=== PATIENT | male | born 1985 | race Caucasian/White ===

== ENCOUNTER 2023-05-29 10:12 | Emergency (ER) | payer SELFPAY ==
[2023-05-29] MEDS ORDERED: Sodium Chloride 0.9% 10 ML Syringe FLUSH PRN (10:15)
[2023-05-29 10:34] LABS: BASOPHILS ABSOLUTE AUTO 0.03 K/uL (0.00-0.20); BASOPHILS PERCENT AUTO 0.7 % (0.0-2.0); EOSINOPHILS ABSOLUTE AUTO 0.04 K/uL (0.00-0.50); EOSINOPHILS PERCENT AUTO 0.9 % (0.0-5.0); HEMATOCRIT 40.2 % (39.0-49.0); HEMOGLOBIN 14.3 g/dL (13.1-16.8); LYMPHOCYTES ABSOLUTE AUTO 0.45 K/uL (0.50-3.50); LYMPHOCYTES PERCENT AUTO 10.2 % (10.0-50.0); MEAN CORPUSCULAR HEMOGLOBIN 32.8 pg (28.2-33.3); MEAN CORPUSCULAR HGB CONC 35.6 g/dL (31.7-36.0); MEAN CORPUSCULAR VOLUME 92.2 fL (84.0-98.0); MONOCYTES ABSOLUTE AUTO 0.43 K/uL (0.00-1.00); MONOCYTES PERCENT AUTO 9.8 % (2.0-14.0); NEUTROPHILS ABSOLUTE AUTO 3.45 K/uL (1.40-7.00); NEUTROPHILS PERCENT AUTO 78.4 % (45.0-80.0); PLATELET COUNT,PLT 82 K/uL (150-350); RED BLOOD CELL COUNT 4.36 M/uL (4.33-5.41); RED CELL DISTRIBUTION WIDTH 14.1 % (11.2-14.1); WHITE BLOOD CELL COUNT,WBC 4.4 K/uL (4.0-10.2)
[2023-05-29] MEDS: Sodium Chloride 0.9% 1,000 ML IV ONE ×2 (10:45→11:44)
[2023-05-29] MEDS: Thiamine 200 MG/2 ML MDV IVPUSH ONE (10:48)
[2023-05-29 11:08] LABS: ALANINE AMINOTRANSFERASE,ALT 213 U/L (12-78); ALBUMIN 4.3 g/dL (3.4-5.0); ALKALINE PHOSPHATASE 84 IU/L (46-116); ASPARTATE AMNIOTRANSFERASE,AST 526 U/L (15-37); BILIRUBIN TOTAL 2.5 mg/dL (0.2-1.0); BLOOD UREA NITROGEN,BUN 3 mg/dL (7-18); CALCIUM 9.2 mg/dL (8.5-10.1); CARBON DIOXIDE,CO2 24.6 mmol/L (21.0-32.0); CHLORIDE,CL 96 mmol/L (98-107); CREATININE 1.05 mg/dL (0.51-1.17); ETHANOL BLOOD MEDICAL 0.002 g/dL (0.000-0.080); GLUCOSE RANDOM 165 mg/dL (70-99); MAGNESIUM 0.9 mg/dL (1.8-2.4); PROTEIN TOTAL,TP 7.8 g/dL (6.4-8.2); SODIUM,NA 137 mmol/L (136-145)
[2023-05-29 11:10] LABS: ANION GAP 19.4 meq/L (7-15); ESTIMATED GFR 93 mL/min (>=60)
[2023-05-29 11:28] LABS: APPEARANCE,URINE CLEAR; BILIRUBIN,URINE SMALL (NEGATIVE); COLOR,URINE YELLOW; GLUCOSE,URINE NEGATIVE (NEGATIVE); KETONES,URINE 15 mg/dL (NEGATIVE); LEUKOCYTE ESTERASE,URINE NEGATIVE (NEGATIVE); NITRITE,URINE NEGATIVE (NEGATIVE); OCCULT BLOOD,URINE MODERATE (NEGATIVE); PROTEIN,URINE >=300 mg/dL (NEGATIVE)
[2023-05-29 11:31] LABS: AMPHETAMINES SCREEN, URINE NEGATIVE (NEGATIVE); BARBITURATE SCREEN,URINE NEGATIVE (NEGATIVE); BENZODIAZEPINES SCREEN,URINE NEGATIVE (NEGATIVE); COCAINE METABOLITES,URINE NEGATIVE (NEGATIVE); EDDP,URINE SCREEN NEGATIVE (NEGATIVE); METHAMPHETAMINES SCREEN, URINE NEGATIVE (NEGATIVE); TCA SCREEN,URINE NEGATIVE (NEGATIVE); THC SCREEN,URINE 50 NG/ML NEGATIVE (NEGATIVE)
[2023-05-29 11:32] LABS: BUPRENORPHINE SCREEN,URINE NEGATIVE (NEGATIVE); OXYCODONE SCREEN,URINE NEGATIVE (NEGATIVE)
[2023-05-29] MEDS: Potassium Bicarbonate/Cit Ac 20 MEQ Effervescent Tab PO ONE ×3 (11:35→13:40)
[2023-05-29] MEDS: Ondansetron 4 MG/2 ML SDV IVPUSH ONE (11:36)
[2023-05-29 11:38] LABS: RBC,URINE 0-5 /HPF; WBC,URINE 0-5 /HPF
[2023-05-29 11:39] LABS: AMORPHOUS SEDIMENT,URINE FEW /HPF (0/HPF); BACTERIA,URINE NOT SEEN /HPF (NONE TO FEW); EPITHELIAL CELLS,URINE FEW /LPF; HYALINE CASTS,URINE FEW; MUCUS,URINE MODERATE /LPF (NEGATIVE)
[2023-05-29] MEDS: Diazepam 5 MG Tab PO ONE (11:51)
[2023-05-29] MEDS: Diphtheria,Pertussis(Acell),Tetanus Vaccine 0.5 ML Syringe IM ONE (12:19)
[2023-05-29] MEDS: Metoprolol Tartrate 25 MG Tab PO ONE (12:48)
[2023-05-29 14:04] LABS: CORONAVIRUS COVID-19 NAA NEGATIVE (NEGATIVE); INFLUENZA A NAA NEGATIVE (NEGATIVE); INFLUENZA B NAA NEGATIVE (NEGATIVE); RESPIRATORY SYNCYTIAL VIR NAA NEGATIVE (NEGATIVE)
== END 2023-05-29 14:05 ==
LOC: LL.ED 10:12
DX: F10.239 Alcohol dependence with withdrawal, unspecified (principal); F10.930 Alcohol use, unspecified with withdrawal, uncomplicated
CPT/HCPCS: 0241U; 36415; 70450; 72125; 80053; 80305-QW; 80307; 81001; 83605; 83735; 85025; 90471; 90715; 93005; 93010; 96361; 96365; 96366; 96375; 99284; 99285-25; A9270-GY; J2405; J3360; J3411; J3475; J7030